=== PATIENT | female | born 1980 | race Two or more races ===

== ENCOUNTER 2023-05-06 09:15 | Emergency (ER) | payer OTHER ==
[~2023-05-06] VITALS: Ht 165.1 cm; Wt 59.0 kg
[2023-05-06 11:12] VITALS: BP 122/73; PULSE 74; RESP 18; TEMP 97.7; O2SAT 97
[2023-05-06] MEDS ORDERED: HYDROcodone-ACET 5/325MG TAB PO ONE (12:15)
== END 2023-05-06 14:07 | disposition home or self-care (01) ==
LOC: EDBD 09:15 → ER 09:15
DX: R51.9 Headache, unspecified (principal); M54.2 Cervicalgia; V89.2XXA Person injured in unspecified motor-vehicle accident, traffic, initial encounter; Y93.9 Activity, unspecified; Y92.89 Other specified places as the place of occurrence of the external cause; Y99.8 Other external cause status
CPT/HCPCS: 70450; 72040